=== PATIENT | female | born 1965 | race Caucasian/White ===

== ENCOUNTER 2022-07-01 03:40 | Emergency (ER) | payer MEDICAID, SELFPAY ==
[2022-07-01 03:41] VITALS: PULSE 84; RESP 16; TEMP 36.3; O2SAT 98; BMI 40.6
[2022-07-01 03:45] VITALS: BP 161/91
--- NOTE | 2022-07-01 03:49 | CT_ITS ---
EXAM: CT ABDOMEN AND PELVIS WITH INTRAVENOUS CONTRAST CLINICAL INDICATION: abd pain -- IV PO Contrast TECHNIQUE: Helically acquired images were obtained of the abdomen and pelvis with intravenous contrast. This CT exam was performed using one or more of the following dose reduction techniques: automated exposure control, adjustment of the mA and/or kV according to patient size, and/or use of iterative reconstruction technique. This report was created using [employer] report generation technology. CONTRAST: IV 100mL Isovue-370 COMPARISON: None. FINDINGS: LOWER THORAX: Unremarkable. Lung bases are clear. No cardiomegaly. No significant pericardial effusion. ABDOMEN: LIVER: Unremarkable. Homogeneous. No focal mass. GALLBLADDER AND BILE DUCTS: Mild dilation of the common bile duct measuring 1 cm. Multiple stones in the gallbladder. No gallbladder distention or wall edema. PANCREAS: Unremarkable. No focal cystic or solid mass. SPLEEN: Unremarkable. Normal size without focal cystic or solid mass. ADRENALS: Unremarkable. No nodules. KIDNEYS AND URETERS: Unremarkable. Normal renal size and position. No hydronephrosis. STOMACH AND BOWEL: Wall thickening and edema/inflammation involving multiple loops of distal small bowel. The colon is unremarkable. No stomach or bowel distention. PELVIS: APPENDIX: The appendix is normal. BLADDER: Unremarkable. REPRODUCTIVE: Unremarkable as visualized. No mass. ABDOMEN and PELVIS: INTRAPERITONEAL SPACE: Small amount of free fluid. No free air. BONES/JOINTS: Degenerative changes of the spine. No suspicious lytic or blastic abnormality. SOFT TISSUES: Unremarkable. No discrete abdominal or pelvic wall hernia. VASCULATURE: Moderate atherosclerotic changes of the abdominal aorta without aneurysm. LYMPH NODES: Unremarkable. No enlarged lymph nodes. CT/Abdomen/Pelvis WITH Contrast IMPRESSION: 1. Mild dilation of the common bile duct measuring 1 cm. This could indicate sequela of a distal common duct stone. Correlate for lateral trace evidence of acute biliary obstruction. 2. Multiple stones in the gallbladder. 3. Wall thickening and edema/inflammation involving multiple loops of distal small bowel. This may indicate an infectious or inflammatory enteritis, to include possible Crohn''s disease, although the terminal ileum is spared. Electronically Signed: Trae Grove MD at 5:53 EDT ,
--- NOTE | 2022-07-01 03:50 | EX.ED.DYSGE1 ---
HPI History of Present Illness Chief Complaint: Abd Pain Informant: patient Onset/Context/Timing Onset: Yesterday Context: Sudden Onset Current Severity: Moderate Maximum Severity: Moderate Narrative Narrative: Patient presents with rather abrupt onset of mid to lower abdominal pain last evening. She states she feels nauseous and as if she may have diarrhea. No fever or chills. She ate normally yesterday and felt well throughout the day. Patient has no urinary symptoms. Last bowel movement was yesterday. PFSH PFSH Medical History Hypertension Home Medications dextroamphetamine-amphetamine 20 mg tablet 20 mg PO DAILY 05/06/15 [History Last Taken Unknown] hydrochlorothiazide 12.5 mg capsule 12.5 mg PO DAILY 05/06/15 [History Last Taken Unknown] hydrocodone-acetaminophen 5-325mg 5mg-325mg 1 ea PO Q4H PRN PRN Pain 05/06/15 [History Last Taken Unknown] lisinopril 10 mg tablet 10 mg PO DAILY 05/06/15 [History Last Taken Unknown] cholecalciferol (vitamin D3) 10 mcg (400 unit) capsule (Vitamin D3) 10 mcg PO DAILY 07/01/22 [History Last Taken Unknown] ciprofloxacin HCl 500 mg tablet (Cipro) 500 mg PO BID #20 tabs 07/01/22 [Rx Last Taken Unknown] furosemide 20 mg tablet (Lasix) 20 mg PO DAILY 07/01/22 [History Last Taken Unknown] lisdexamfetamine 70 mg capsule (Vyvanse) 70 mg PO DAILY 07/01/22 [History Last Taken Unknown] metronidazole 500 mg tablet 500 mg PO BID 10 days #20 tabs 07/01/22 [Rx Last Taken Unknown] Allergy/AdvReac Type Severity Reaction Status Date / Time No Known Allergies Allergy Verified 05/06/15 06:35 Surgical History H/O: H/O: hysterectomy Social History Smoking Status: Current every day smoker tobacco type: e-cigarettes ROS ROS ED Constitutional Constitutional ED: Denies chills or fever(s) Eyes Eyes: Denies change in vision or discharge from eye(s) ENT ENT ED: Denies discharge from eye(s), rhinorrhea or sore throat Cardiovascular Cardiovascular: Denies chest pain or palpitations Respiratory/Chest Respiratory/Chest: Denies cough or dyspnea Gastrointestinal Gastrointestinal: Reports abdominal pain and nausea; Denies diarrhea or vomiting Genitourinary Genitourinary ED: Denies difficulty urinating or dysuria Musculoskeletal Musculoskeletal: Denies back pain or extremity pain Integumentary Denies Abrasions or rash Neurologic Neurologic: Denies headache(s) or weakness Psychiatric Psychiatric: Denies anxiety or depression Allergic/Immunologic Allergic/Immunologic ED: Denies lip swelling or urticaria EXAM Physical Exam Const Vital Signs: 07/01/22 03:41 07/01/22 03:45 Temperature 97.3 F L Temperature Source Temporal Pulse Rate 84 Respiratory Rate 16 Blood Pressure 161/91 H Blood Pressure Mean 114 Pulse Ox 98 Oxygen Delivery Method Room Air Positive well nourished and well developed General Appearance ED: well developed HEENT Reports normocephalic and head/scalp atraumatic Eyes PERRL and EOMs intact bilaterally Neck supple Chest Wall inspection of chest normal and palpation of chest normal Resp normal respiratory effort and clear to auscultation bilaterally Cardio regular rate and regular rhythm GI GI Narrative: Tenderness to palpation along the infraumbilical border. No palpable hernias. Hypoactive bowel sounds noted. Palpation: soft Extremity normal to inspection Neuro oriented x3 and no sensory deficits noted Sensorium / Orientation: alert Motor Exam: strength 5/5 throughout Psych mental status grossly normal Skin no rashes or lesions noted MDM MDM MDM Narrative Medical decision making narrative: Patient given morphine, Zofran, IV fluids. Lab work obtained along with CT scan of the abdomen pelvis with contrast. Lab Data Attestation: I reviewed the patient's lab results. Labs: Laboratory Results - last 24 hr 07/01/22 07/01/22 03:47 03:47 WBC 10.9 RBC 4.52 Hgb 13.5 Hct 40.6 MCV 89.8 MCH 29.9 MCHC 33.3 RDW Std Deviation 43.5 RDW Coeff of Yenifer 13.2 Plt Count 265 MPV 9.1 Immature Gran % (Auto) 0.300 Neut % (Auto) 71.4 H Lymph % (Auto) 22.3 [place] % (Auto) 4.5 Eos % (Auto) 1.2 Baso % (Auto) 0.3 Absolute Neuts (auto) 7.8 H Absolute Lymphs (auto) 2.44 Nucleated RBC % 0 Sodium 141 Potassium 4.2 Chloride 107 Carbon Dioxide 27.0 Anion Gap 7 BUN 21 H Creatinine 0.65 Estim Creat Clear Calc 88.32 Est GFR (MDRD) Af Amer 120 Est GFR (MDRD) Non-Af 99 BUN/Creatinine Ratio 32.2 H Glucose 121 H Calcium 9.2 Total Bilirubin 0.30 Direct Bilirubin 0.10 AST 20 ALT 34 Alkaline Phosphatase 108 Total Protein 7.4 Albumin 3.6 Globulin 3.8 Lipase 88 Radiography Diagnostic Testing: Clinical Impression(s) from Imaging Studies Abdomen/Pelvis CT 07/01/22 03:49 IMPRESSION: 1. Mild dilation of the common bile duct measuring 1 cm. This could indicate sequela of a distal common duct stone. Correlate for lateral trace evidence of acute biliary obstruction. 2. Multiple stones in the gallbladder. 3. Wall thickening and edema/inflammation involving multiple loops of distal small bowel. This may indicate an infectious or inflammatory enteritis, to include possible Crohn''s disease, although the terminal ileum is spared. Electronically Signed: Trae Grove MD at 5:53 EDT , Treatment and Re-Evaluation Narrative: Lab work including CBC, chemistry studies, liver function test, lipase are all fairly unremarkable. CT scan of the abdomen pelvis reveals mild dilation of the common bile duct measuring 1 cm with multiple stones in the gallbladder. Wall thickening is noted with some edema and inflammation involving multiple loops of the distal small bowel. This may be infectious or inflammatory. Patient has no known history of Crohn's disease. This was rather abrupt onset. Ultrasound of the right upper quadrant will be performed to ensure no evidence of acute cholecystitis or stone in the bile duct. If this is negative I believe patient can be discharged with a prescription for Cipro and Flagyl. This be set up to oncoming physician pending ultrasound report. Discharge Plan Triage Chief Complaint: Abd Pain ED Provider: Angie Moya Dx/Rx/DC Orders Clinical Impression: Gastroenteritis Instructions: ED Gastroenteritis, Bacterial (Adult) Prescriptions: New ciprofloxacin HCl [Cipro] 500 mg tablet 500 mg PO BID Qty: 20 0RF metronidazole 500 mg tablet 500 mg PO BID 10 Days Qty: 20 0RF No Action hydrocodone-acetaminophen 1 EACH tablet 1 ea PO Q4H PRN PRN (Reason: Pain) dextroamphetamine-amphetamine 20 MG tablet 20 mg PO DAILY lisinopril 10 MG tablet 10 mg PO DAILY hydrochlorothiazide 12.5 MG capsule 12.5 mg PO DAILY furosemide [Lasix] 20 mg Tablet 20 mg PO DAILY cholecalciferol (vitamin D3) [Vitamin D3] 10 mcg (400 unit) Capsule 10 mcg PO DAILY Vyvanse 70 mg Capsule 70 mg PO DAILY Primary Care Provider: Milton Valenzuela Referrals: Milton Valenzuela DO [Primary Care Provider] - 1-2 Weeks Disposition Disposition: Home, Self Care
[2022-07-01 03:57] LABS: Absolute Lymphocyte Count 2.44 X10^3/uL (0.83-4.51); Absolute Neutrophil Count 7.8 X10^3/uL (2.0-7.7); Basophil# 0.03 X10^3/uL; Basophil% 0.3 % (0-1); Eosinophil# 0.13 X10^3/uL; Eosinophils% 1.2 % (0-5); Hematocrit 40.6 % (37-47); Hemoglobin 13.5 g/dL (12.0-15.0); Lymphocyte # 2.44 X10^3/ul (0.83-4.51); Lymphocyte % 22.3 % (19-41); Mean Corp Hgb Conc 33.3 g/dL (32-36); Mean Corpuscular Hgb 29.9 pg (27.0-32.0); Mean Corpuscular Volume 89.8 fL (81-99); Mean Platelet Vol. 9.1 fl (6.2-12.0); Monocyte# 0.49 X10^3/uL; Monocyte% 4.5 % (0-10); NRBC Flagged by Analyzer 0 % (0-5); Neutrophil # 7.81 X10^3/uL (2.7-7.7); Neutrophil % 71.4 % (47-70); Platelet Count 265 K/mm3 (150-450); RBC Distribution Width CV 13.2 % (11.6-14.6); RBC Distribution Width SD 43.5 fl (35.1-43.9); Red Blood Count 4.52 M/mm3 (4.2-5.4); White Blood Count 10.9 K/mm3 (4.4-11.0)
[2022-07-01] MEDS: 0.9% Normal Saline 1,000 ML 150 ML IV (03:57)
[2022-07-01] MEDS: Ondansetron 4 MG/2 ML Vial IV (03:57)
[2022-07-01] MEDS: Morphine 4 MG/ML Syringe IV (03:58)
[2022-07-01 04:14] LABS: AST(SGOT) 20 U/L (15-37); Alanine Aminotransfer ALT/SGPT 34 U/L (13-56); Albumin, Serum 3.6 g/dL (3.2-5.0); Alkaline Phosphatase 108 U/L (45-117); Anion Gap 7 (5-15); BUN 21 mg/dL (7-18); BUN/Creat Ratio 32.2 RATIO (10-20); Calcium,Total 9.2 mg/dL (8.5-10.1); Chloride 107 mmol/L (98-107); Creatinine, Serum 0.65 mg/dL (0.55-1.02); EST Glomerular Filtration Rate 99 mL/min (>60); Est Glom Filt Rate - Afr Amer 120 mL/min (>60); Estimated Creatinine Clearance 88.32 ml/min; Globulin 3.8 g/dL (2.2-4.2); Glucose 121 mg/dL (74-106); Lipase 88 U/L (73-393); Potassium 4.2 mmol/L (3.5-5.1); Protein, Total 7.4 g/dL (6.4-8.2); Sodium Level 141 mmol/L (136-145)
--- NOTE | 2022-07-01 07:06 | US_ITS ---
STUDY: ABDOMINAL ULTRASOUND - RIGHT UPPER QUADRANT REASON FOR VISIT: Female, 56 years old abd pain -- see CT reading . Gallstones. Dilated common bile duct. TECHNIQUE: Ultrasound evaluation of the right upper quadrant was performed with real-time and static marc-scale imaging. TECHNICAL QUALITY: Adequate. COMPARISON: Comparison is made with prior CT scan done earlier today. FINDINGS: Liver: The liver is enlarged and measures 18.1 cm. There is increased echogenicity consistent with fatty infiltration. The bile ducts are within normal limits. There is hepatic color flow. The direction of portal flow is hepatopetal. There is no demonstrated mass lesion. Gallbladder: There is a contracted gallbladder. The gallbladder wall measures 3 mm. There is a negative sonographic Mcgraw''s sign. There is no pericholecystic fluid. There are multiple echogenic structures within the gallbladder, consistent with multiple gallstones. Common Bile Duct (C.B.D.): The common bile duct is dilated and measures 11 mm. Pancreas: Normal size of the head, body and tail of the pancreas. There is normal echogenicity of the pancreas. There is no demonstrated pancreatic mass or cyst. Right Kidney: Normal size of the right kidney. The right kidney measures 10.3 cm x 6.3 cm x 4.5 cm. Normal renal cortex. The right cortex measures 1.5 cm. There is no demonstrated renal mass or cyst. There is no right hydronephrosis. US/Abdomen Limited IMPRESSION: Contracted stone filled gallbladder. Mild dilatation of the common bile duct measuring 11 mm. Electronically Signed: Damon Clark MD at 8:42 EDT ,
[2022-07-01 10:06] VITALS: BP 131/82; PULSE 75; RESP 16; O2SAT 98
== END 2022-07-01 10:07 | disposition home or self-care (01) ==
PROVIDERS: Emergency Provider Emergency Medicine; PCP Student in an Organized Health Care Education/Training Program; Visit Provider Emergency Medicine
DX: K52.9 Noninfective gastroenteritis and colitis, unspecified (principal); I10 Essential (primary) hypertension; F17.210 Nicotine dependence, cigarettes, uncomplicated
CPT/HCPCS: 74177; 76705; 80048; 80076; 83690; 85025; 99282; Q9967; A4216; J2405

== ENCOUNTER → 2023-05-08 | Outpatient (CLI) | payer MEDICAID, SELFPAY ==
--- NOTE | 2023-05-08 14:00 | RAD_ITS ---
PROCEDURE: Fluoroscopic guided left hip injection. DATE: 05/08/2023 INDICATION: 57-year-old female with left hip pain. PHYSICIAN: Jose Ewign D.O. MEDICATIONS: 5 cc of 2% lidocaine was administered subcutaneously for local anesthesia. ACCESS SITE: Left hip NEEDLE: 22-gauge spinal needle. FLUOROSCOPY TIME (if supplied): 10 seconds. One image obtained. FINDINGS: The risks, benefits, and alternatives to the procedure were explained to the patient. The specific risks of bleeding, infection, and neurovascular injury were detailed and accepted. Witnessed informed consent was obtained. Injection site in the left hip was selected utilizing fluoroscopy. The area was then prepared with usual sterile technique utilizing iodine prep. 5 cc of 2% lidocaine was administered locally utilizing a 25-gauge injection needle. A 22-gauge spinal needle was then placed into the left hip joint cavity utilizing periodic fluoroscopic guidance. Placement of the needle into the joint space was confirmed by injecting 2 to 3 cc of 50:50 normal saline/Isovue contrast mixture. Approximately 4 cc of the Kenalog/bupivacaine mixture provided and prepared by the pharmacy was then injected into the joint space. The needle was then removed. The patient tolerated the procedure well without any immediate complications. The patient was discharged home in stable condition. RAD/Inj/Asp Vito Jt Should/Hip/Knee IMPRESSION: Successful fluoroscopic guided left hip injection. Electronically Signed: Jose Ewing DO at 14:56 EDT ,
[2023-05-08] MEDS: Lidocaine 2% (5ml sdv) 5 ML VIAL.MPF INFILT (14:19)
[2023-05-08] MEDS: Bupivacaine 0.5% PF 10 ML VIAL INTRAARTIC (14:27)
[2023-05-08] MEDS: Triamcinolone Acetonide 40 MG/ML Vial 80 MG INTRAARTIC (14:27)
== END | disposition home or self-care (01) ==
LOC: RAD 13:35
PROVIDERS: PCP Student in an Organized Health Care Education/Training Program; Referring Provider Orthopaedic Surgery; Visit Provider Orthopaedic Surgery
DX: M16.12 Unilateral primary osteoarthritis, left hip (principal)
CPT/HCPCS: 20610; 77002

== ENCOUNTER → 2023-07-21 | Outpatient (CLI) | payer MEDICAID, SELFPAY ==
[2023-07-21] MEDS: Lidocaine 2% (5ml sdv) 5 ML VIAL.MPF INFILT (12:15)
--- NOTE | 2023-07-21 12:49 | PCM.OP.PRO ---
Procedure Report Date of Procedure: 07/21/23 Assessment & Plan Assessment/Plan (1) Osteoarthritis of right hip: PLAN: PROCEDURE: Fluoroscopic Guided Hip Injection ORDERING PROVIDER: Dr. Jaylon Wells INDICATION: Female, 57 years old. Osteoarthritis of right hip. PROVIDER: JELEAN Velázquez PROCEDURE: CONSENT: The risks, benefits, and alternatives to the procedure were explained to the patient. The specific risks of bleeding, infection, and neurovascular injury were detailed and accepted. Witnessed informed consent was obtained. TECHNIQUE: The right hip access site was prepped and draped in sterile fashion. 2% Lidocaine was administered subcutaneously for local anesthesia. A 22-gauge spinal needle was positioned under radiographic fluoroscopic localization. Approximately 2 cc of Isovue 300 instilled for localization purposes. Medication was then injected. MEDICATIONS: 12 mg of Celestone and 3 cc of 1% Lidocaine. The spinal needle was removed, and a dressing was applied. The patient tolerated the procedure well without any immediate complications. IMPRESSION: Successful fluoroscopic guided right hip injection. Procedures Radiology Radiology Xray Procedures: [id number] Inj Asp major Joint - Hip, Knee
== END | disposition home or self-care (01) ==
LOC: RAD 11:42
PROVIDERS: PCP Student in an Organized Health Care Education/Training Program; Referring Provider Orthopaedic Surgery; Visit Provider Orthopaedic Surgery
DX: M16.11 Unilateral primary osteoarthritis, right hip (principal)
CPT/HCPCS: 20610; 77002; J0702

== ENCOUNTER 2023-07-30 10:03 | Emergency (ER) | payer MEDICAID, SELFPAY ==
[2023-07-30 10:04] VITALS: BP 146/94; PULSE 95; RESP 18; TEMP 36.1; O2SAT 97; BMI 38.5
--- NOTE | 2023-07-30 11:03 | EDS_ITS ---
<Statement entered by Angie Moya MD - 07/30/23 19:10> I have personally performed a face to face assessment of the patient and have reviewed the SAMEER Note. Patient presents secondary to tension headache. She reports pain in the right shoulder and trapezius region for the past several days. She states pain is now moved up her neck and into her head. She states she gets similar tension headaches a couple times a year. She is already on chronic narcotics at home. She states usually she will come in and get a shot to relieve her symptoms. There is been no injury. No URI symptoms. Pain does not radiate down her arm or into her chest. Patient sitting at bedside in no acute distress. Head and neck examination reveals no evidence of trauma. She does have muscular tenderness in the right low cervical paraspinal region and across the right shoulder. Heart is regular rate and rhythm. Lung sounds are clear. Abdomen is soft and nontender. Neuro exam is normal. Patient already has opioids and Flexeril at home. Lidoderm patches placed on her back and she is given an IM injection of Toradol. Return instructions provided. HPI History of Present Illness Chief Complaint: Headache Narrative Narrative: 57-year-old females had pain and tension in her right trapezius and right neck over the last 5 days and today woke up in the pain had moved to her right rastafarian. She gets similar tension headaches a couple times a year states she usually has to come in and get a pain shot. She is on Vicodin for other chronic pain but it has not helped this. She denies trauma. She has no visual changes, nausea or vomiting, or focal motor or sensory changes. Headache was gradual onset. [facility] Medical History Hypertension Home Medications dextroamphetamine-amphetamine 20 mg tablet 20 mg PO DAILY 05/06/15 [History Last Taken Unknown] hydrocodone-acetaminophen 5-325mg 5mg-325mg 1 ea PO Q4H PRN PRN Pain 05/06/15 [History Last Taken 07/30/23] lisinopril 10 mg tablet 10 mg PO DAILY 05/06/15 [History Last Taken Unknown] cholecalciferol (vitamin D3) 10 mcg (400 unit) capsule (Vitamin D3) 10 mcg PO DAILY 07/01/22 [History Last Taken Unknown] furosemide 20 mg tablet (Lasix) 20 mg PO DAILY 07/01/22 [History Last Taken Unknown] metronidazole 500 mg tablet 500 mg PO BID 10 days #20 tabs 07/01/22 [Rx Last Taken Unknown] cyclobenzaprine 10 mg tablet 10 mg PO TID PRN 07/30/23 [History Last Taken 07/29/23] dextroamphetamine-amphetamine ER 25 mg 24hr capsule,extend release 25 mg PO DAILY 07/30/23 [History Last Taken Unknown] Allergy/AdvReac Type Severity Reaction Status Date / Time No Known Allergies Allergy Verified 07/30/23 10:04 Surgical History H/O: H/O: hysterectomy Social History Smoking Status: Current every day smoker tobacco type: e-cigarettes ROS ROS ED ROS Narrative Constitutional: Negative for fever, chills, malaise. Eyes: Negative for visual change. ENT: Negative for sore throat, ear pain, rhinorrhea. GI: Negative for nausea, vomiting. Neuro: Positive for headache, negative to motor/sensory dysfunction. EXAM Physical Exam Narrative Exam Narrative: CONST: Patient sitting in no acute distress. EYES: Normal inspection. PERRLA, EOMI. NECK: Normal inspection. No meningismus. RESP: No respiratory distress, CTAB. CVS: Regular rate and rhythm, no murmur, no gallop. SKIN: Color normal, no rash, warm, dry, intact. EXTREMITIES: Normal appearance, no pedal edema. NEURO: Oriented x4. 5/5 upper and lower extremity strength, no drift, normal [id number]. PSYCH: Normal affect. Const Vital Signs: 07/30/23 10:04 Temperature 97.0 F L Temperature Source Temporal Pulse Rate 95 Respiratory Rate 18 Blood Pressure 146/94 H Blood Pressure Mean 111 Pulse Ox 97 Oxygen Delivery Method Room Air MDM MDM MDM Narrative Medical decision making narrative: Patient is a gradual onset headache that started in the cervical and trapezius area and has moved to her right rastafarian. It is similar to prior headaches. She is awake alert with stable vital signs. HEENT exam is normal. She has no meningismus. She has reproducible muscular tenderness on the right side so I suspect tension headache. Differential also includes migraine, cluster headache, less likely SAH. Based on gradual onset headache and normal neurological exam I do not CT imaging is indicated. She was treated with IM Toradol and a lidocaine patch and feels improved and was discharged in stable condition. Discharge Plan Triage Chief Complaint: Headache ED Midlevel Provider: Adeline Alexandra ED Provider: Angie Moya Dx/Rx/DC Orders Clinical Impression: Acute tension headache Instructions: ED Headache, Tension Prescriptions: No Action hydrocodone-acetaminophen 1 EACH tablet 1 ea PO Q4H PRN PRN (Reason: Pain) dextroamphetamine-amphetamine 20 MG tablet 20 mg PO DAILY lisinopril 10 MG tablet 10 mg PO DAILY furosemide [Lasix] 20 mg Tablet 20 mg PO DAILY cholecalciferol (vitamin D3) [Vitamin D3] 10 mcg (400 unit) Capsule 10 mcg PO DAILY metronidazole 500 mg tablet 500 mg PO BID 10 Days Qty: 20 0RF cyclobenzaprine 10 mg tablet 10 mg PO TID PRN Patient Comments: take 1 tablet by mouth three times a day if needed for muscle spasm dextroamphetamine-amphetamine 25 mg capsule,extended release 24hr 25 mg PO DAILY Patient Comments: take 1 capsule by mouth once daily Primary Care Provider: Milton Valenzuela Referrals: Milton Valenzuela DO [Primary Care Provider] - Activity Restrictions/Additional Instructions: Please take Tylenol Motrin as needed, return to ER if headache worsens Disposition Disposition: Home, Self Care Discharge Date/Time: 07/30/23 11:48
[2023-07-30] MEDS: Ketorolac 30 MG/ML Syringe IM (11:24)
[2023-07-30] MEDS: Lidocaine 5% Patch 1 PATCH TOPICAL (11:27)
== END 2023-07-30 11:48 | disposition home or self-care (01) ==
LOC: ED 11:47
PROVIDERS: Emergency Provider Emergency Medicine; PCP Student in an Organized Health Care Education/Training Program; Visit Provider Emergency Medicine
DX: G44.209 Tension-type headache, unspecified, not intractable (principal); I10 Essential (primary) hypertension; F17.290 Nicotine dependence, other tobacco product, uncomplicated
CPT/HCPCS: 96372; 99282

== ENCOUNTER → 2023-10-09 | Outpatient (CLI) | payer MEDICAID, SELFPAY ==
--- NOTE | 2023-10-09 14:58 | PCM.OP.PRO ---
Procedure Report Date of Procedure: 10/09/23 Assessment & Plan Assessment/Plan (1) Osteoarthritis of left hip: QUALIFIERS: Osteoarthritis type: unspecified Qualified Code(s): M16.12 - Unilateral primary osteoarthritis, left hip PLAN: PROCEDURE: Fluoroscopic Guided left hip injection ORDERING PROVIDER: Ruthie Hector PA-C INDICATION: Female, 57 years old. Left osteoarthritis. PROVIDER: JELENA Velázquez PROCEDURE: CONSENT: The risks, benefits, and alternatives to the procedure were explained to the patient. The specific risks of bleeding, infection, and neurovascular injury were detailed and accepted. Witnessed informed consent was obtained. TECHNIQUE: The left hip access site was prepped and draped in sterile fashion. 2% Lidocaine was administered subcutaneously for local anesthesia. A 22-gauge spinal needle was positioned under radiographic fluoroscopic localization. Approximately 2 cc of Isovue 300 instilled for localization purposes. Medication was then injected. MEDICATIONS: 80 mg of Kenalog and 3 ml of 1% lidocaine. The spinal needle was removed, and a dressing was applied. The patient tolerated the procedure well without any immediate complications. IMPRESSION: Successful fluoroscopic guided left hip injection. Procedures Radiology Radiology Xray Procedures: [id number] Inj Asp major Joint - Hip, Knee
== END | disposition home or self-care (01) ==
LOC: RAD 11:50
PROVIDERS: PCP Student in an Organized Health Care Education/Training Program; Referring Provider Physician Assistant; Visit Provider Physician Assistant
DX: M16.12 Unilateral primary osteoarthritis, left hip (principal)
CPT/HCPCS: 20610; 77002; Q9967

== ENCOUNTER → 2023-12-15 | Outpatient (CLI) | payer MEDICAID, SELFPAY ==
[2023-12-15] MEDS: Lidocaine 2% (5ml sdv) 5 ML VIAL.MPF INFILT (10:00)
[2023-12-15] MEDS: Triamcinolone Acetonide 40 MG/ML Vial 80 MG INTRAARTIC (10:05)
[2023-12-15] MEDS: Lidocaine 1% (5 ml sdv) 5 ML Vial 3 ML INFILT (10:05)
--- NOTE | 2023-12-15 10:21 | PCM.OP.PRO ---
Procedure Report Date of Procedure: 12/15/23 Assessment & Plan Assessment/Plan (1) Osteoarthritis of right hip: QUALIFIERS: Osteoarthritis type: unspecified Qualified Code(s): M16.11 - Unilateral primary osteoarthritis, right hip PLAN: PROCEDURE: Fluoroscopic Guided right hip injection ORDERING PROVIDER: Ruthie Hector PA-C INDICATION: Female, 58 years old. Right hip osteoarthritis. PROVIDER: JELENA Velázquez PROCEDURE: CONSENT: The risks, benefits, and alternatives to the procedure were explained to the patient. The specific risks of bleeding, infection, and neurovascular injury were detailed and accepted. Witnessed informed consent was obtained. TECHNIQUE: The right hip access site was prepped and draped in sterile fashion. 2% Lidocaine was administered subcutaneously for local anesthesia. A 22-gauge spinal needle was positioned under radiographic fluoroscopic localization. Approximately 2 cc of Isovue 300 instilled for localization purposes. Medication was then injected. MEDICATIONS: 80 mg of Kenalog and 3 ml of 1% lidocaine. The spinal needle was removed, and a dressing was applied. The patient tolerated the procedure well without any immediate complications. IMPRESSION: Successful fluoroscopic guided right hip injection. Procedures Radiology Radiology Xray Procedures: Inj Asp major Joint - Hip, Knee
== END | disposition home or self-care (01) ==
LOC: RAD 09:30
PROVIDERS: PCP Student in an Organized Health Care Education/Training Program; Referring Provider Physician Assistant; Visit Provider Physician Assistant
DX: M16.11 Unilateral primary osteoarthritis, right hip (principal)
CPT/HCPCS: 20610; 77002

== ENCOUNTER → 2024-01-11 | Outpatient (CLI) | payer MEDICAID, SELFPAY ==
[2024-01-11] MEDS: Lidocaine 2% (5ml sdv) 5 ML VIAL.MPF (12:23)
[2024-01-11] MEDS: Triamcinolone Acetonide 40 MG/ML Vial 80 MG IM (12:23)
--- NOTE | 2024-01-11 12:25 | PCM.OP.PRO ---
Procedure Report Date of Procedure: 01/11/24 Assessment & Plan Assessment/Plan (1) Osteoarthritis of left hip: QUALIFIERS: Osteoarthritis type: unspecified Qualified Code(s): M16.12 - Unilateral primary osteoarthritis, left hip PLAN: PROCEDURE: Fluoroscopic Guided left hip injection ORDERING PROVIDER: Ruthie Hector PA-C INDICATION: Female, 58 years old. Left hip osteoarthritis. FLUOROSCOPY TIME (if supplied): 1 minutes/4 seconds. 18.26 mGy PROVIDER: JELENA Velázquez PROCEDURE: CONSENT: The risks, benefits, and alternatives to the procedure were explained to the patient. The specific risks of bleeding, infection, and neurovascular injury were detailed and accepted. Witnessed informed consent was obtained. TECHNIQUE: The left hip access site was prepped and draped in sterile fashion. 2% Lidocaine was administered subcutaneously for local anesthesia. A 22-gauge spinal needle was positioned under radiographic fluoroscopic localization. Approximately 2 cc of Isovue 300 instilled for localization purposes. Medication was then injected. MEDICATIONS: 40 mg of Kenalog and 3 ml of 1% lidocaine. The spinal needle was removed, and a dressing was applied. The patient tolerated the procedure well without any immediate complications. IMPRESSION: Successful fluoroscopic guided left hip injection. Procedures Radiology Radiology Xray Procedures: Inj Asp major Joint - Hip, Knee
== END | disposition home or self-care (01) ==
LOC: RAD 11:50
PROVIDERS: PCP Student in an Organized Health Care Education/Training Program; Referring Provider Physician Assistant; Visit Provider Physician Assistant
DX: M16.12 Unilateral primary osteoarthritis, left hip (principal)
CPT/HCPCS: 20610; 77002; Q9967